=== PATIENT | male | born 1970 | race Caucasian/White ===

== ENCOUNTER 2020-03-23 06:51 | Day surgery (SDC) | payer BC ==
[~2020-03-23 06:51] MED LIST: Lactated Ringers 1,000 ML IV SCH; Sodium Chloride 0.9% 10 ML SDV IV PRN; Sodium Chloride 0.9% 10 ML Syringe FLUSH PRN; Sodium Chloride 0.9% 2.5 ML Syringe FLUSH PRN; ceFAZolin 2 GM in Premix Bag 1 BAG IV ONE
[2020-03-23] MEDS ORDERED: Propofol 200 MG/20 ML SDV ONE ×2 (06:57→07:03)
[2020-03-23] MEDS ORDERED: Lidocaine 2% 5 ML SDV ONE (06:57)
[2020-03-23] MEDS ORDERED: fentaNYL 100 MCG/2 ML SDV ONE ×2 (06:58→08:16)
[2020-03-23] MEDS ORDERED: Midazolam 1 MG/ML 2 ML SDV ONE (06:58)
[2020-03-23] MEDS ORDERED: Glycopyrrolate 0.2 MG/ML SDV ONE (07:17)
[2020-03-23] MEDS ORDERED: Lidocaine 1% 20 ML MDV ONE (07:24)
[2020-03-23] MEDS ORDERED: Bupivacaine 0.5% 30 ML SDV ONE (07:24)
--- NOTE | 2020-03-23 07:27 | PCM.PREANE ---
Preanesthetic Assessment - Anesthesia/Transfusion/Family Hx Anesthesia History: Prior Anesthesia Without Reaction Family History of Anesthesia Reaction: No Transfusion History: No Prior Transfusion(s) Intubation History: Unknown - Review of Systems General: No Symptoms Pulmonary: No Symptoms Cardiovascular: No Symptoms Gastrointestinal: No Symptoms Neurological: No Symptoms Other: Reports: None - Physical Assessment NPO Status Date: 03/22/20 Vital Signs: Last Vital Signs Temp 98.1 F 03/23/20 07:04 Pulse 87 03/23/20 07:04 Resp 14 03/23/20 07:04 BP 116/84 03/23/20 07:04 Pulse Ox 95 03/23/20 07:04 Height: 6 ft 3 in Weight: 103.419 kg ASA Class: 2 Mental Status: Alert & Oriented x3 Airway Class: Mallampati = 2 Dentition: Reports: Normal Dentition ROM/Head Extension: Full Lungs: Clear to Auscultation, Normal Respiratory Effort Cardiovascular: Regular Rate, Regular Rhythm - Allergies Allergies/Adverse Reactions: Allergies Allergy/AdvReac Type Severity Reaction Status Date / Time No Known Allergies Allergy Verified 03/23/20 07:09 - Blood Blood Available: No - Anesthesia Plan Pre-Op Medication Ordered: None - Acknowledgements Anesthesia Type Planned: General Anesthesia Pt an Appropriate Candidate for the Planned Anesthesia: Yes Alternatives and Risks of Anesthesia Discussed w Pt/Guardian: Yes Pt/Guardian Understands and Agrees with Anesthesia Plan: Yes Additional Comments: pmh:gastritis, gout plan: ga/lma PreAnesthesia Questionnaire - Past Health History Medical/Surgical History: Denies Medical/Surgical History HEENT History: Reports: Other (See Below) Other HEENT History: wears contacts/glasses Cardiovascular History: Reports: None Respiratory History: Reports: None Gastrointestinal History: Reports: Colon Polyp Genitourinary History: Reports: None Musculoskeletal History: Reports: Gout Other Musculoskeletal History: plantar fascitis Neurological History: Reports: None Psychiatric History: Reports: None Endocrine/Metabolic History: Reports: None Hematologic History: Reports: None Immunologic History: Reports: None Oncologic (Cancer) History: Reports: None Dermatologic History: Reports: None - Infectious Disease History Infectious Disease History: Reports: Chicken Pox - Past Surgical History Head Surgeries/Procedures: Reports: None HEENT Surgical History: Reports: Tonsillectomy, Other (See Below) Other HEENT Surgeries/Procedures: rhinoplasty Cardiovascular Surgical History: Reports: None Respiratory Surgical History: Reports: None GI Surgical History: Reports: Appendectomy, Colon, Colonoscopy, Other (See Below) Other GI Surgeries/Procedures: colon surgery for retrocecal appedicitis 2012, second surgery 1 1/2 years later a colon resection for a perforated bowel Male Surgical History: Reports: None Endocrine Surgical History: Reports: None Neurological Surgical History: Reports: None Musculoskeletal Surgical History: Reports: Arthroscopic Knee Other Musculoskeletal Surgeries/Procedures:: knee surgery for torn meniscus Oncologic Surgical History: Reports: None Dermatological Surgical History: Reports: None - SUBSTANCE USE Smoking Status *Q: Former Smoker Tobacco Use Within Last Twelve Months: Cigarettes - HOME MEDS Home Medications: Home Meds Colchicine 0.6 mg PO ASDIRECTED 03/17/20 [History] Triamcinolone Acetonide [Triamcinolone Acetonide 0.5%] 1 applic TOP ASDIRECTED PRN 03/17/20 [History] allopurinoL [Zyloprim] 100 mg PO DAILY 03/17/20 [History] - CURRENT (IN HOUSE) MEDS Current Meds: Current Medications Lactated Ringer's (Ringers, Lactated) 1,000 mls @ 125 mls/hr IV ASDIRECTED MARU Last Admin: 03/23/20 07:18 Dose: 125 mls/hr Documented by: Sodium Chloride (Saline Flush) 2.5 ml FLUSH ASDIRECTED PRN PRN Reason: Keep Vein Open Sodium Chloride (Normal Saline) 10 ml IV ASDIRECTED PRN PRN Reason: IV Use Sodium Chloride (Saline Flush) 10 ml FLUSH ASDIRECTED PRN PRN Reason: Keep Vein Open Discontinued Medications Fentanyl (Sublimaze) Confirm Administered Dose 100 mcg .ROUTE .STK-MED ONE Stop: 03/23/20 06:59 Glycopyrrolate (Robinul) Confirm Administered Dose 0.2 mg .ROUTE .STK-MED ONE Stop: 03/23/20 07:18 Cefazolin Sodium/Dextrose 2 gm (/ Premix) 50 mls @ 100 mls/hr IV ONETIME ONE Stop: 03/22/20 09:01 Lidocaine (Xylocaine-Mpf 2%) Confirm Administered Dose 5 ml .ROUTE .STK-MED ONE Stop: 03/23/20 06:58 Midazolam HCl (Versed 1 Mg/Ml) Confirm Administered Dose 2 mg .ROUTE .STK-MED ONE Stop: 03/23/20 06:59 Propofol (Diprivan 20 Ml) Confirm Administered Dose 200 mg .ROUTE .STK-MED ONE Stop: 03/23/20 06:58 Propofol (Diprivan 20 Ml) Confirm Administered Dose 200 mg .ROUTE .STK-MED ONE Stop: 03/23/20 07:04
[2020-03-23] MEDS ORDERED: Ondansetron 4 MG/2 ML SDV ONE (07:28)
[2020-03-23] MEDS ORDERED: ePHEDrine 50 MG/ML SDV ONE (08:34)
--- NOTE | 2020-03-23 10:58 | PCM48HPAN ---
Post Anesthesia Note - EVALUATION WITHIN 48HRS OF ANESTHETIC Vital Signs in Normal Range: Yes Patient Participated in Evaluation: Yes Respiratory Function Stable: Yes Airway Patent: Yes Cardiovascular Function Stable: Yes Hydration Status Stable: Yes Pain Control Satisfactory: Yes Nausea and Vomiting Control Satisfactory: Yes Mental Status Recovered: Yes Vital Signs: Last Vital Signs Temp 98.1 F 03/23/20 07:04 Pulse 87 03/23/20 07:04 Resp 14 03/23/20 07:04 BP 116/84 03/23/20 07:04 Pulse Ox 95 03/23/20 07:04
--- NOTE | 2020-03-23 11:41 | PCM.OPNOTE ---
- General Post-Op/Procedure Note Date of Surgery/Procedure: 03/23/20 Operative Procedure(s): Excision left and right upper back lipomas Findings: Right back lipoma: 6 x 4 x 1 cm Left back lipoma: 3x 3 x 2.5 cm, 2.5 x 2 x 0.5 cm, 5 x 3 x 0.5 cm Pre Op Diagnosis: Mass of shoulders Post-Op Diagnosis: Lipoma of left and right shoulder Anesthesia Technique: General LMA Primary Surgeon: Karolina Vidal Fluid Replacement, Intraop: 1,500 EBL in mLs: 5 Condition: Good
[2020-03-23 12:16] VITALS: BP 121/74; PULSE 82
--- NOTE | 2020-03-23 15:32 | OR ---
SURGEON: KAROLINA VIDAL MD DATE OF PROCEDURE: 03/23/2020 PREOPERATIVE DIAGNOSIS: Right shoulder and left shoulder mass. POSTOPERATIVE DIAGNOSIS: Right shoulder and left shoulder lipomas. PROCEDURE PERFORMED: Excision of right and left shoulder lipomas. PRIMARY SURGEON: Karolina Vidal MD ANESTHESIA: General LMA. FLUIDS: 1500 mL of crystalloid. ESTIMATED BLOOD LOSS: 5 mL. FINDINGS: Right shoulder lipoma measuring 6 x 4 x 1 cm in size. No margins associated with the case. Left shoulder lipoma excised in three pieces. The pieces measured 3 x 3 x 2.5 cm, 2.5 x 2 x 0.5 cm, 5 x 3 x 0.5 cm. No margins associated with case. COMPLICATIONS: None. INDICATIONS: The patient is a 50-year-old male who comes with two enlarging shoulder masses. On physical exam, these feel like lipomas. The patient and I discussed the need for excision of these masses in the operating room given their size. I explained the procedure, expected perioperative course, and the risks. He verbalized understanding and wishes to proceed. PROCEDURE IN DETAIL: The patient was brought into the OR suite. A time-out was completed verifying the patient's name, age, date of , allergies, and procedure to be performed. General LMA anesthesia was induced. The patient was then placed in the left lateral decubitus position, making sure to secure the patient to the table and appropriately pad all bony surfaces. The upper back was prepped and draped in usual standard fashion. The right shoulder and left shoulder masses had been marked in the preoperative area. I anesthetized the area overlying these masses with 0.5% Marcaine plain. I started by removing the left shoulder mass. An incision was made over the top of the mass using a 15 blade. Cautery was used to dissect down to the level of the subcutaneous fat. I immediately encountered a multilobulated mass, consistent with that of a lipoma. Using electrocautery as well as blunt dissection, I dissected it free from the surrounding tissue. The mass itself was deep and tracked toward the midline. The mass was removed in several pieces. These pieces were taken out separately and measured on the back table. It measured 3 x 3 x 2.5 cm, 2.5 x 2 x 0.5 cm, and 5 x 3 x 0.5 cm respectively. I inspected my operative field. Hemostasis was achieved with electrocautery. The wound was packed with a moistened lap, and I turned my attention to the right shoulder mass. A 15 blade was used to make an incision horizontally over the top of this mass. Electrocautery was used to dissect down through the layers of the subcutaneous fat until I reached the mass. This again appeared to be a multilobulated lipoma. Using blunt dissection, I was able to free it from most of the surrounding tissues. Electrocautery was used to undermine the lesion and separate it completely from its underlying structures. It was placed on the back table and measured. It measured 6 x 4 x 1 cm in size. I inspected my operative field. Electrocautery was used to achieve hemostasis. I then irrigated both wounds copiously with normal saline. I started my closure on the right side. I closed the subcutaneous fat with a running 3-0 Vicryl suture in the deepest layer. Interrupted 3-0 Vicryl sutures were used in the more superficial subcutaneous layer. I then closed the skin with a running 4-0 Monocryl stitch. Steri-Strips and a sterile dressing were applied. I turned my attention back to the left shoulder operative site. I closed this with interrupted layers of 3-0 Vicryl suture. The skin was closed with running 4-0 Monocryl stitch. Steri-Strips and a sterile dressing were applied. The patient tolerated the procedure well and was taken to the PACU in stable condition. All counts were complete and correct at the end of the case. SANDY / CEASAR /[id number]
== END 2020-03-23 11:08 | disposition home or self-care (01) ==
LOC: MW.SDS 06:51
PROVIDERS: ATTEND Surgery
DX: D17.22 Benign lipomatous neoplasm of skin and subcutaneous tissue of left arm (principal); D17.21 Benign lipomatous neoplasm of skin and subcutaneous tissue of right arm; M10.9 Gout, unspecified; Z87.891 Personal history of nicotine dependence
CPT/HCPCS: 23071; J2001; J2250; J2405; J2704; J3010; J3490; J7120; 00300; 88304

== ENCOUNTER 2020-04-16 06:44 | Emergency (ER) | payer BC ==
[2020-04-16] MEDS ORDERED: Sodium Chloride 0.9% 2.5 ML Syringe FLUSH PRN (06:49)
[2020-04-16] MEDS ORDERED: Sodium Chloride 0.9% 10 ML Syringe FLUSH PRN (06:49)
--- NOTE | 2020-04-16 07:12 | EDM.PDOC ---
ED HPI GENERAL MEDICAL PROBLEM - General Chief Complaint: Cardiovascular Problem Stated Complaint: ANXIETY, SHORT OF BREATH, NAUSEA Time Seen by Provider: 04/16/20 07:04 - History of Present Illness INITIAL COMMENTS - FREE TEXT/NARRATIVE: History of present illness: Patient presents with concerns about anxiety awaking suddenly feeling that he had something wrong with him. He states he had some reflux-like symptoms but without the burning acid brash. He was very restless last night trying to sleep but at 415 he awoke suddenly with this sensation that he was unwell he describes having some chest discomfort but not dilip pain no radiation he had some shortness of breath with the feeling at that time and he felt very shaky he subsequently denies any fever chills cough any prior trouble breathing has had no leg pain or leg swelling no prior chest pains or dyspnea on exertion. He does not take any medications except allopurinol for gout he has not had any prior history of hypertension diabetes or cardiovascular disease. He is a non- smoker Review of systems: As per history of present illness and below otherwise all systems reviewed and negative. Past medical history: As per history of present illness and as reviewed below otherwise noncontributory. Surgical history: As per history of present illness and as reviewed below otherwise noncontributory. Social history: No reported history of drug or alcohol abuse. Family history: As per history of present illness and as reviewed below otherwise noncontributory. Physical exam: HEENT: Atraumatic, normocephalic, pupils reactive, negative for conjunctival pallor or scleral icterus, mucous membranes moist, throat clear, neck supple, nontender, trachea midline. Lungs: Clear to auscultation, breath sounds equal bilaterally, chest nontender. Heart: S1S2, regular, negative for clicks, rubs, or JVD. Abdomen: Soft, nondistended, nontender. Negative for masses or hepatosplenomegaly. Negative for costovertebral tenderness. Pelvis: Stable nontender. Genitourinary: Deferred. Rectal: Deferred. Extremities: Atraumatic, negative for cords or calf pain. Neurovascular unremarkable. Neuro: Awake, alert, oriented. Cranial nerves II through XII unremarkable. Cer ebellum unremarkable. Motor and sensory unremarkable throughout. Exam nonfocal. Diagnostics: [] Therapeutics: [] Impression: Chest pressure, anxiety Plan: Cardiac work-up and reassess the patient. [] Definitive disposition and diagnosis as appropriate pending reevaluation and review of above. no pain Pain Score (Numeric/FACES): 0 - Related Data Allergies Allergy/AdvReac Type Severity Reaction Status Date / Time No Known Allergies Allergy Verified 04/16/20 06:48 Home Meds: Home Meds allopurinoL [Zyloprim] 100 mg PO DAILY 03/17/20 [History] Past Medical History - Past Health History Medical/Surgical History: Denies Medical/Surgical History HEENT History: Reports: Other (See Below) Other HEENT History: wears contacts/glasses Cardiovascular History: Reports: None Respiratory History: Reports: None Gastrointestinal History: Reports: Colon Polyp Genitourinary History: Reports: None Musculoskeletal History: Reports: Gout Other Musculoskeletal History: plantar fascitis Neurological History: Reports: None Psychiatric History: Reports: None Endocrine/Metabolic History: Reports: None Hematologic History: Reports: None Immunologic History: Reports: None Oncologic (Cancer) History: Reports: None Dermatologic History: Reports: None - Infectious Disease History Infectious Disease History: Reports: None - Past Surgical History Head Surgeries/Procedures: Reports: None HEENT Surgical History: Reports: Tonsillectomy, Other (See Below) Other HEENT Surgeries/Procedures: rhinoplasty Cardiovascular Surgical History: Reports: None Respiratory Surgical History: Reports: None GI Surgical History: Reports: Appendectomy, Colon, Colonoscopy, Other (See Below) Other GI Surgeries/Procedures: colon surgery for retrocecal appedicitis 2012, second surgery 1 1/2 years later a colon resection for a perforated bowel Male Surgical History: Reports: None Endocrine Surgical History: Reports: None Neurological Surgical History: Reports: None Musculoskeletal Surgical History: Reports: Arthroscopic Knee Other Musculoskeletal Surgeries/Procedures:: knee surgery for torn meniscus Oncologic Surgical History: Reports: None Dermatological Surgical History: Reports: None Social & Family History - Family History Family Medical History: Noncontributory - Tobacco Use Smoking Status *Q: Never Smoker - Caffeine Use Caffeine Use: Reports: Coffee - Recreational Drug Use Recreational Drug Use: No ED ROS GENERAL - Review of Systems Review Of Systems: See Below ED EXAM, GENERAL - Physical Exam Exam: See Below EKG INTERPRETATION EKG Interpretation Comments: Sinus rhythm with a rate of 61 bpm no ischemic changes left axis deviation normal intervals read and interpreted by me Course - Vital Signs Text/Narrative:: One-view portable chest read and interpreted by me no acute cardiopulmonary pathology is evident. Patient's troponin and EKG are unremarkable his symptoms began prior to 430 this morning safe to get him home and follow-up with primary care return to the ED for chest pain symptoms. Last Recorded V/S: Last Vital Signs Temp 36.2 C 04/16/20 06:48 Pulse 84 04/16/20 07:53 Resp 18 04/16/20 06:48 BP 156/69 H 04/16/20 07:53 Pulse Ox 98 04/16/20 07:53 - Orders/Labs/Meds Orders: Active Orders 24 hr Category Date Time Status Cardiac Monitoring [RC] . DIRECTED Care 04/16/20 06:49 Active EKG Documentation Completion [RC] STAT Care 04/16/20 06:49 Active Pulse Oximetry [RC] ASDIRECTED Care 04/16/20 06:49 Active Sodium Chloride 0.9% [Saline Flush] Med 04/16/20 06:49 Active 10 ml FLUSH ASDIRECTED PRN Sodium Chloride 0.9% [Saline Flush] Med 04/16/20 06:49 Active 2.5 ml FLUSH ASDIRECTED PRN Saline Lock Insert [OM.PC] Stat Oth 04/16/20 06:49 Ordered Medication Orders Sodium Chloride (Saline Flush) 10 ml FLUSH ASDIRECTED PRN PRN Reason: Keep Vein Open Last Admin: 04/16/20 07:47 Dose: 10 ml Documented by: [id number] Sodium Chloride (Saline Flush) 2.5 ml FLUSH ASDIRECTED PRN PRN Reason: Keep Vein Open Last Admin: 04/16/20 07:47 Dose: 2.5 ml Documented by: [id number] Labs: Laboratory Tests 04/16/20 04/16/20 Range/Units 07:00 07:00 WBC 8.15 (4.0-11.0) K/uL RBC 5.08 (4.50-5.90) M/uL Hgb 16.1 (13.0-17.0) g/dL Hct 46.3 (38.0-50.0) % MCV 91.1 (80.0-98.0) fL MCH 31.7 (27.0-32.0) pg MCHC 34.8 (31.0-37.0) g/dL RDW Std Deviation 43.8 (28.0-62.0) fl RDW Coeff of Luciano 13 (11.0-15.0) % Plt Count 260 (150-400) K/uL MPV 8.30 (7.40-12.00) fL Neut % (Auto) 71.7 (48.0-80.0) % Lymph % (Auto) 15.1 L (16.0-40.0) % [place] % (Auto) 8.3 (0.0-15.0) % Eos % (Auto) 4.4 (0.0-7.0) % Baso % (Auto) 0.5 (0.0-1.5) % Neut # (Auto) 5.8 H (1.4-5.7) K/uL Lymph # (Auto) 1.2 (0.6-2.4) K/uL [place] # (Auto) 0.7 (0.0-0.8) K/uL Eos # (Auto) 0.4 (0.0-0.7) K/uL Baso # (Auto) 0.0 (0.0-0.1) K/uL Nucleated RBC % 0.0 /100WBC Nucleated RBCs # 0 K/uL Sodium 139 (136-148) mmol/L Potassium 4.1 (3.5-5.1) mmol/L Chloride 103 (98-107) mmol/L Carbon Dioxide 24.2 (21.0-32.0) mmol/L BUN 21 H (7.0-18.0) mg/dL Creatinine 1.0 (0.8-1.3) mg/dL Est Cr Clr Drug Dosing 106.80 mL/min Estimated GFR (MDRD) > 60.0 ml/min Glucose 115 H (74-106) mg/dL Calcium 9.3 (8.5-10.1) mg/dL Troponin I < 0.050 (0.000-0.056) ng/mL Meds: Medications Generic Name Dose Route Start Last Admin Trade Name Freq PRN Reason Stop Dose Admin Sodium Chloride 10 ml 04/16/20 06:49 04/16/20 07:47 Saline Flush FLUSH 10 ml ASDIRECTED PRN Administration Keep Vein Open Sodium Chloride 2.5 ml 04/16/20 06:49 04/16/20 07:47 Saline Flush FLUSH 2.5 ml ASDIRECTED PRN Administration Keep Vein Open Discontinued Medications Generic Name Dose Route Start Last Admin Trade Name Taylor PRN Reason Stop Dose Admin Aspirin 324 mg 04/16/20 07:24 04/16/20 07:47 Aspirin PO 04/16/20 07:25 324 mg ONETIME ONE Administration Departure - Departure Time of Disposition: 07:56 Disposition: Home, Self-Care 01 Condition: Good Clinical Impression: Chest pain Instructions: Nonspecific Chest Pain, Adult, [id number] Referrals: PCP,None [Primary Care Provider] - Forms: ED Department Discharge Additional Instructions: The following information is given to patients seen in the emergency department who are being discharged to home. This information is to outline your options for follow-up care. We provide all patients seen in our emergency department with a follow-up referral. The need for follow-up, as well as the timing and circumstances, are variable depending upon the specifics of your emergency department visit. If you don't have a primary care physician on staff, we will provide you with a referral. We always advise you to contact your personal physician following an emergency department visit to inform them of the circumstance of the visit and for follow-up with them and/or the need for any referrals to a consulting specialist. The emergency department will also refer you to a specialist when appropriate. This referral assures that you have the opportunity for follow-up care with a specialist. All of these measure are taken in an effort to provide you with optimal care, which includes your follow-up. Under all circumstances we always encourage you to contact your private physician who remains a resource for coordinating your care. When calling for follow-up care, please make the office aware that this follow-up is from your recent emergency room visit. If for any reason you are refused follow-up, please contact the [facility] Emergency Department at and asked to speak to the emergency department charge nurse. [facility] [address] [place] [id number] [id number] Sepsis Event Note (ED) - Evaluation Sepsis Screening Result: No Definite Risk - Focused Exam Vital Signs: Vital Signs Temp Pulse Resp BP Pulse Ox 04/16/20 07:53 84 156/69 H 98 04/16/20 07:15 78 146/69 H 98 04/16/20 06:48 36.2 C 82 18 141/95 H 97
[2020-04-16] MEDS ORDERED: Aspirin 81 MG Tab.Chew PO ONE (07:24)
[2020-04-16 07:33] LABS: BLOOD UREA NITROGEN,BUN 21 mg/dL (7.0-18.0); CARBON DIOXIDE,CO2 24.2 mmol/L (21.0-32.0); CHLORIDE,CL 103 mmol/L (98-107); GLUCOSE RANDOM 115 mg/dL (74-106); POTASSIUM,K 4.1 mmol/L (3.5-5.1); SODIUM,NA 139 mmol/L (136-148)
--- NOTE | 2020-04-16 07:40 | CR ---
Chest: Portable view of the chest was obtained. Comparison: No prior chest imaging is available. Heart size and mediastinum are normal. Lungs are clear with no acute parenchymal change. Bony structures show nothing acute. Impression: 1. Nothing acute is seen on portable chest x-ray. Diagnostic code #1 This report was dictated in MDT
[2020-04-16 07:53] VITALS: BP 156/69; PULSE 84
== END 2020-04-16 08:03 | disposition home or self-care (01) ==
LOC: MW.ED 06:44
DX: F41.9 Anxiety disorder, unspecified (principal); M10.9 Gout, unspecified; Z90.49 Acquired absence of other specified parts of digestive tract; Z90.89 Acquired absence of other organs; Z79.899 Other long term (current) drug therapy
CPT/HCPCS: 36415; 71045; 80048; 84484; 85025; 93005; 99285; A9270; 99283